=== PATIENT | female | born 1980 | race Caucasian/White ===

== ENCOUNTER 2018-03-26 17:35 | Emergency (ER) | payer MEDICAID, OTHER ==
[~2018-03-26] VITALS: Ht 165.1 cm; Wt 67.0 kg
[~2018-03-26 17:35] MED LIST: CLON-527 PO; CYCL-120 PO; HYDR1TAB PO; NAPR-56 PO; SERT25TA PO
[2018-03-26 17:41] VITALS: BP 95/52
[2018-03-26] MEDS ORDERED: CefTRIAXone 250MG IM Kit w/LIDOcaine IM ONE (18:35)
[2018-03-26] MEDS ORDERED: DOXY100C43 PO (18:38)
[2018-03-26 18:53] LABS: CLARITY,URINE CLOUDY (Clear); COLOR,URINE YELLOW (Yellow); GLUCOSE, URINE NEGATIVE (Neg); KETONES,URINE NEGATIVE (Neg); LEUKOCYTE ESTERASE ,URINE NEGATIVE (Neg); NITRITES, URINE POSITIVE (Neg); OCCULT BLOOD,URINE TRACE-INTACT (Neg); PROTEIN,URINE NEGATIVE (Neg); UROBILINOGEN,URINE 0.2 E.U/dL (0.2-1.0)
[2018-03-26 18:54] LABS: URINE HCG NEGATIVE (NEG)
[2018-03-26 19:01] LABS: UA COLLECTION TYPE CLN CATCH MIDSTREAM
[2018-03-26 19:09] LABS: BACTERIA,URINE 4+ /HPF (Neg); RBC,URINE 0-2 /HPF (0-2); SQUAMOUS EPITHELIAL CELL,UR FEW /LPF (FEW)
[2018-03-26] MEDS ORDERED: NITR100C6 PO (19:11)
== END 2018-03-26 19:26 | disposition home or self-care (01) ==
LOC: ER 17:36
DX: N39.0 Urinary tract infection, site not specified (principal); G89.29 Other chronic pain; Z98.890 Other specified postprocedural states; Z88.0 Allergy status to penicillin; Z79.899 Other long term (current) drug therapy
CPT/HCPCS: 36415; 81001; 81025; 87088; 87186; 87491; 87591; 96372; 99284; J0696; 87077

== ENCOUNTER 2021-02-26 19:18 | Emergency (ER) | payer MEDICAID, OTHER ==
[~2021-02-26] VITALS: Ht 162.6 cm; Wt 71.8 kg
[~2021-02-26 19:18] MED LIST changes: +NITR100C6 PO
[2021-02-26 19:25] VITALS: BP 111/77
== END 2021-02-26 21:27 | disposition left against medical advice (07) ==
LOC: ER 19:19
DX: R21 Rash and other nonspecific skin eruption (principal); Z53.21 Procedure and treatment not carried out due to patient leaving prior to being seen by health care provider

== ENCOUNTER 2021-12-28 01:45 | Emergency (ER) | payer MEDICAID ==
[~2021-12-28] VITALS: Ht 165.1 cm; Wt 72.7 kg
[2021-12-28] MEDS ORDERED: HYDROcodone/acetaminophen 5mg/325mg tablet PO ONE (02:35)
[2021-12-28] MEDS ORDERED: clindamycin 150mg capsule PO ONE (02:35)
[2021-12-28] MEDS ORDERED: ibuprofen 200mg tablet PO ONE (02:35)
[2021-12-28] MEDS ORDERED: CLIN-14 PO (02:40)
[2021-12-28] MEDS ORDERED: HYDR-3965 PO (02:40)
[2021-12-28 02:59] VITALS: BP 125/79
== END 2021-12-28 03:01 | disposition home or self-care (01) ==
LOC: ER 01:46
DX: K04.7 Periapical abscess without sinus (principal); F17.200 Nicotine dependence, unspecified, uncomplicated; G89.29 Other chronic pain; M54.9 Dorsalgia, unspecified; Z88.0 Allergy status to penicillin
CPT/HCPCS: 99284

== ENCOUNTER 2024-10-14 21:20 | Emergency (ER) | payer MEDICAID ==
[~2024-10-14] VITALS: Ht 160 cm; Wt 72.7 kg
[2024-10-14 22:43] VITALS: BP 115/80; PULSE 90; RESP 16; TEMP 98.9; O2SAT 99
== END 2024-10-14 22:44 | disposition home or self-care (01) ==
LOC: ER 21:21
DX: S93.402A Sprain of unspecified ligament of left ankle, initial encounter (principal); Z88.0 Allergy status to penicillin; Z98.51 Tubal ligation status; Z98.890 Other specified postprocedural states; X58.XXXA Exposure to other specified factors, initial encounter; Y93.89 Activity, other specified; Y92.89 Other specified places as the place of occurrence of the external cause; Y99.8 Other external cause status
CPT/HCPCS: 73610; 73630; 99284; L4360